=== PATIENT | female | born 1935 | race Caucasian/White ===

== ENCOUNTER 2016-11-28 12:24 | Emergency (ER) | payer MEDICARE ==
[~2016-11-28] VITALS: Ht 162.6 cm; Wt 90.3 kg
[2016-11-28 12:25] VITALS: BP_SYST 153
--- NOTE | 2016-11-28 12:25 | NUR ---
Patient to ER bed 03 to gown for evaluation. Side rails up.
--- NOTE | 2016-11-28 12:26 | NUR ---
Dr Mariano at bedside examining patient
--- NOTE | 2016-11-28 12:26 | NUR ---
Pt brought by LIZET, Dulce&Ox4, pt tripped and fell while helping her grandaughter to bed , Pt present with R wrist deformity and pain 6/10, skin pink and warm , cap refill <3, VSS. respirations even and unlabored, no active bleeding.
[2016-11-28] MEDS ORDERED: MORPHINE 2 MG/ML INJ. SYRINGE IVP ONE (13:15)
[2016-11-28] MEDS ORDERED: ONDANSETRON HCL 4 MG/2 ML VIAL IVP ONE (13:15)
--- NOTE | 2016-11-28 14:00 | NUR ---
Pt on stable condiition, splint and sling well tolerated in R wrist, cap refill <3.
--- NOTE | 2016-11-28 15:27 | NUR ---
Patient to be transferred to [place] Is being transferred due to higher level of care. Receiving facility has accepting physician and available space. ER physician has signed transfer form. Patient or responsible green party has agreed to transfer and signed form. Patient belongings inventoried and will be sent with patient. Copy of nursing notes, lab reports, EKG, Physicians Orders and X-rays to be sent with patient. Report called to Shae at receiving facility. Receiving physician is Dr Quinones. ambulance here at this time to transfer.
--- NOTE | 2016-11-28 15:27 | NUR ---
Note undone in EDM - 11/28/16 at 1530 by [email or web address] Patient to be transferred to [place] Is being transferred due to higher level of care. Receiving facility has accepting physician and available space. ER physician has signed transfer form. Patient or responsible green party has agreed to transfer and signed form. Patient belongings inventoried and will be sent with patient. Copy of nursing notes, lab reports, EKG, Physicians Orders and X-rays to be sent with patient. Report called to Shae at receiving facility. Receiving physician is Dr Quinones. ambulance service has been called for transfer. ETA is 20 minutes.
[2016-11-28 15:30] VITALS: BP_SYST 132
== END 2016-11-28 15:30 | disposition home or self-care (01) ==
LOC: SED 12:24
DX: S52.611A Displaced fracture of right ulna styloid process, initial encounter for closed fracture (principal); S52.591A Other fractures of lower end of right radius, initial encounter for closed fracture; I10 Essential (primary) hypertension; Z90.49 Acquired absence of other specified parts of digestive tract; W01.0XXA Fall on same level from slipping, tripping and stumbling without subsequent striking against object, initial encounter; Y93.89 Activity, other specified; Y99.8 Other external cause status; Y92.89 Other specified places as the place of occurrence of the external cause
CPT/HCPCS: 29125; 73110; 96374; 96375; 99284; J2270; J2405